=== PATIENT | female | born 1970 | race Caucasian/White ===

== ENCOUNTER 2022-12-31 20:54 | Emergency (ER) | payer OTHER ==
[~2022-12-31] VITALS: Ht 149.9 cm; Wt 52.2 kg
[2022-12-31 21:02] VITALS: BP_SYST 134
--- NOTE | 2022-12-31 21:07 | NUR ---
Patient triaged and placed in waiting room. VSS and patient appears in no acute distress at this time. Accompanied by EMS , awaiting available bed, and MD notified of need for MSE.
--- NOTE | 2022-12-31 21:10 | NUR ---
Pt brought by ambulance, A&Ox4, pt presents to ER with N/V and headache, skin pink and warm, cap refill <3, VSS, per EMS BP was elevated 185/115 but improved after Zofran, current BP 134/69, skin pink and warm,will cont to monitor.
--- NOTE | 2022-12-31 22:35 | NUR ---
Patient to ER bed 03 to gown for evaluation. Side rails up. Report given to EDUARDO TYLER
--- NOTE | 2022-12-31 22:35 | NUR ---
Pt report received. Pt c/o vomiting x 2 episodes with left sided abdominal pain, bloating, and generalized weakness since [address]. Pt seen 3 days ago at an ER r/t diarrhea and was tx for food poisoning. Pt Rx Flagyl PO. No active vomiting noted at this time.
--- NOTE | 2022-12-31 22:50 | NUR ---
Dr. Tate at bedside to assess pt.
[2022-12-31] MEDS ORDERED: NACL 0.9% 1,000 ML IV ONE (23:15)
[2022-12-31] MEDS ORDERED: ONDANSETRON HCL 4 MG/2 ML VIAL IVP ONE (23:15)
[2022-12-31] MEDS ORDERED: KETOROLAC TROMETHAMINE 30 MG VIAL IVP ONE (23:15)
--- NOTE | 2022-12-31 23:30 | NUR ---
Blood drawn from existing 20 GA PIV LAC that was placed by EMS HEAD GR[facility]ER.
[2022-12-31 23:41] LABS: BASOPHILS % (AUTO) 0.5 % (0.0-2.0); EOSINOPHILS # (AUTO) 0.1 K/uL (0.0-0.4); EOSINOPHILS % (AUTO) 0.7 % (0.0-4.0); HEMATOCRIT 36.6 % (36-48); HEMOGLOBIN 12.5 g/dL (12.0-16.0); LYMPHOCYTES # (AUTO) 1.6 K/uL (1.0-5.5); LYMPHOCYTES % (AUTO) 19.2 % (20.5-51.5); MEAN CORPUSCULAR HEMOGLOBIN 29 pg (27-31); MEAN CORPUSCULAR HGB CONC 34 % (32-36); MEAN CORPUSCULAR VOLUME 85 fL (79.0-98.0); MONOCYTES # (AUTO) 0.6 K/uL (0.0-1.0); MONOCYTES % (AUTO) 6.9 % (1.7-9.3); NEUTROPHILS # (AUTO) 5.9 K/uL (1.8-7.7); NEUTROPHILS % (AUTO) 72.7 % (40.0-70.0); PLATELET COUNT (AUTO) 253 K/uL (130-430); RED CELL DISTRIBUTION WIDTH 13.4 % (9.0-15.0); WHITE BLOOD COUNT (AUTO) 8.1 K/uL (4.8-10.8)
[2022-12-31 23:54] LABS: ANION GAP 9 (5-15); CALCIUM 8.9 mg/dL (8.4-11.0); CHLORIDE 104 mmol/L (98-107); CREATININE 0.78 mg/dL (0.55-1.30); GLUCOSE 184 mg/dL (70-99); UREA NITROGEN, BLOOD 14 mg/dL (8-21)
[2022-12-31 23:55] LABS: GFR AFRICAN AMERICAN 100 mL/min (>90)
[2022-12-31 23:59] LABS: ALANINE AMINOTRANSFERASE 36 U/L (12-78); ASPARTATE AMINOTRANSFERASE 30 U/L (10-37); LIPASE 195 U/L (73-393); TOTAL BILIRUBIN 0.2 mg/dL (0.0-1.0)
--- NOTE | 2023-01-01 00:10 | NUR ---
Pt to CT.
--- NOTE | 2023-01-01 00:15 | NUR ---
Pt returns from CT.
[2023-01-01 00:16] LABS: BILIRUBIN,URINE NEGATIVE (NEGATIVE); BLOOD, URINE NEGATIVE (NEGATIVE); COLOR,URINE YELLOW (YELLOW); GLUCOSE,URINE NEGATIVE (NEGATIVE); KETONES,URINE NEGATIVE (NEGATIVE); LEUKOCYTE ESTERASE ,URINE 1+ (NEGATIVE); NITRITE, URINE NEGATIVE (NEGATIVE); PH,URINE 7.5 (5.0-8.0); PROTEIN URINE NEGATIVE (NEGATIVE); UROBILINOGEN,URINE 0.2 (0.2-1.0)
[2023-01-01 00:31] LABS: CLARITY/URINE SLIGHTLY CLOUDY (CLEAR); RBC,URINE 0-3 /HPF (0-3)
[2023-01-01 00:32] LABS: BACTERIA,URINE FEW /HPF (None Seen); WBC,URINE 20-50 /HPF (0-3)
[2023-01-01] MEDS ORDERED: ONDA8TAB60 PO (00:32)
[2023-01-01] MEDS ORDERED: IBUP-1969 PO (00:32)
[2023-01-01] MEDS ORDERED: CIPR-260 PO (00:48)
--- NOTE | 2023-01-01 01:00 | NUR ---
No further c/o nausea or abdominal pain and no needs verbalized at this time.
[2023-01-01 01:45] VITALS: BP_SYST 125
--- NOTE | 2023-01-01 01:45 | NUR ---
Patient given written and verbal discharge instructions and verbalizes understanding. ER MD discussed with patient the results and treatment provided. Patient in stable condition. ID arm band removed. IV catheter removed intact and dressing applied, no active bleeding. Rx of Cipro, Motrin, and Zofran given. Patient educated on pain management and to follow up with PMD. Pain Scale 2/10. Opportunity for questions provided and answered. Medication side effect fact sheet provided.
== END 2023-01-01 01:45 | disposition home or self-care (01) ==
LOC: SED 20:54
DX: N39.0 Urinary tract infection, site not specified (principal); R10.32 Left lower quadrant pain; R51.9 Headache, unspecified; R00.2 Palpitations; R11.2 Nausea with vomiting, unspecified; Z79.899 Other long term (current) drug therapy
CPT/HCPCS: 99285; 70450; 96374; 96361; 96375; 80053; 81000; 83690; 85025; 87086; 84484; 36415; 93005; 76376; 74176; J1885; J2405; J7030